=== PATIENT | female | born 1975 | race Caucasian/White ===

== ENCOUNTER 2019-07-15 18:14 | Inpatient (IN) ==
[2019-07-15] MEDS ORDERED: cefTRIAXone 2,000 MG in Water for inj. (sterile) 20 ML IVP ONE (18:24)
[2019-07-15] MEDS: 0.9 % Sodium Chloride 1,000 ML IVC SCH ×2 (18:42→23:20)
[2019-07-15] MEDS ORDERED: Ondansetron 4 MG/2 ML VIAL IVP ONE (18:45)
[2019-07-15 18:49] LABS: Basophils % 0.2 %; Eosinophils % 0.1 %; Hematocrit 42.1 % (35.3-44.9); Hemoglobin 14.3 g/dL (11.5-15.4); Immature Granulocytes % 2.2 % (0-4); Lymphocytes # 1.4 K/mcL (0.6-4.6); Lymphocytes % 7.6 %; Mean Corpuscular Hemoglobin 30.6 pg (28.0-33.3); Mean Platelet Volume 10.4 fL (9.4-12.4); Monocytes # 1.4 K/mcL (0.0-1.3); Monocytes % 7.5 %; Platelet Count 312 K/mcL (140-400); Red Blood Count 4.68 M/mcL (3.82-4.97); Red Cell Distribution Width 13.4 % (11.5-14.5); Segmented Neutrophils % 82.4 %
[2019-07-15 18:52] LABS: Neutrophils # 15.2 K/mcL (1.6-8.9); White Blood Count 18.5 K/mcL (4.3-11.1)
[2019-07-15 19:07] LABS: INR 1.4; Prothrombin Time 15.8 Seconds (9.4-12.1)
[2019-07-15 19:09] LABS: Activated Partial Thrombo Time 35.9 Seconds (26.0-36.0)
[2019-07-15 19:11] LABS: Alanine Aminotransferase 25 Units/L (7-52); Albumin 3.7 g/dL (3.5-5.7); Alkaline Phosphatase 97 Units/L (34-104); Aspartate Amino Transferase 13 Units/L (13-39); BUN/Creatinine Ratio 19 (6-26); Bilirubin,Direct 0.2 mg/dL (0.0-0.2); Bilirubin,Indirect 0.4 mg/dL (0.0-1.0); Bilirubin,Total 0.6 mg/dL (0.3-1.0); Blood Urea Nitrogen 21 mg/dL (6-20); Calcium 9.7 mg/dL (8.6-10.3); Carbon Dioxide 29 mEq/L (23-29); Chloride 96 mEq/L (98-107); Globulin 3.8 g/dL (2.4-3.5); Glucose 132 mg/dL (70-105); Magnesium 2.2 mg/dL (1.6-2.6); Osmolality,Calculated 285 (280-300); Phosphorous 1.5 mg/dL (2.7-4.5); Potassium 3.4 mEq/L (3.5-5.1); Sodium 135 mEq/L (136-145); Total Protein 7.5 g/dL (6.4-8.9); Troponin I < 0.03 ng/mL (< 0.04); eGFR For African Americans > 60 (> 60); eGFR For Non-African Americans 53 (> 60)
[2019-07-15] MEDS ORDERED: *HR* FentaNYL (PF) 100 MCG/2 ML VIAL ONE (20:11)
[2019-07-15] MEDS ORDERED: Lidocaine -MPF 2% 2 ML VIAL ONE ×2 (20:11)
[2019-07-15] MEDS ORDERED: *HR* Propofol 200 MG/20 ML VIAL IVP ONE (20:11)
[2019-07-15] MEDS ORDERED: Dexamethasone 4 MG/ML VIAL ONE (20:15)
[2019-07-15] MEDS ORDERED: Scopolamine Patch 1.5 MG PATCH.TD72 ONE (20:30)
[2019-07-15] MEDS ORDERED: *HR* Promethazine 25 MG/ML VIAL IVP PRN (20:34)
[2019-07-15] MEDS ORDERED: *HR* LORazepam 2 MG/ML VIAL IVP PRN (20:34)
[2019-07-15] MEDS ORDERED: Morphine Sulfate 2 MG/ML SYRINGE IVP PRN (20:36)
[2019-07-15] MEDS ORDERED: Albuterol 2.5 MG/3 ML NEBULIZER IH PRN (21:31)
[2019-07-15] MEDS ORDERED: Ketorolac 30 MG/ML VIAL IVP PRN (22:12)
[2019-07-15] MEDS ORDERED: Ondansetron 4 MG/2 ML VIAL IVP PRN (22:12)
[2019-07-15] MEDS ORDERED: Naloxone 0.4 MG/ML INJ IVP PRN (22:12)
[2019-07-15] MEDS ORDERED: 0.9 % Sodium Chloride 1,000 ML IVC SCH (22:15)
[2019-07-16] MEDS ORDERED: *HR* Promethazine 25 MG/ML VIAL IVP PRN (00:09)
[2019-07-16] MEDS ORDERED: Naloxone 0.4 MG/ML INJ IVP PRN (00:09)
[2019-07-16] MEDS ORDERED: Hyoscyamine SL 0.125 MG TAB.SUBL SL PRN (00:09)
[2019-07-16] MEDS: 0.9 % Sodium Chloride 1,000 ML IVC SCH ×4 (01:12→22:42)
[2019-07-16 03:41] LABS: Bilirubin,Urine Negative (Negative); Blood,Urine Large (Negative); Clarity,Urine Cloudy (Clear); Color,Urine Yellow (Yellow); Glucose,Urine (UA) Normal (Normal); Ketones,Urine 80 mg/dL (Negative); Leukocyte Esterase,Urine Moderate (Negative); Nitrite,Urine Negative (Negative); PH,Urine 6.5 pH Units (5.0-8.0); Protein,Urine 100 mg/dL (Neg-Trace); Specific Gravity,Urine 1.029 (1.010-1.025); Urobilinogen,Urine Normal (Normal)
[2019-07-16 03:43] LABS: Bacteria,Urine None Seen per hpf (None-Few); Hyaline Casts,Urine Few per lpf (None-Few); RBC,Urine TNTC per hpf (0-3); Squamous Epithelial Cell,Urine Many per lpf (None-Few); WBC,Urine 50-100 per hpf (0-3)
[2019-07-16 04:00] LABS: Granular Casts,Urine Few per lpf (None Seen)
[2019-07-16 04:01] LABS: Renal Epithelial Cells,Urine Few per hpf (None-Few)
[2019-07-16 05:26] LABS: Basophils % 0.1 %; Hematocrit 34.3 % (35.3-44.9); Immature Granulocytes % 1.9 % (0-4); Lymphocytes # 1.1 K/mcL (0.6-4.6); Lymphocytes % 7.9 %; Mean Corpuscular HGB Conc 32.9 g/dL (31.6-35.5); Mean Corpuscular Hemoglobin 30.7 pg (28.0-33.3); Mean Corpuscular Volume 93.2 fL (83.0-100.0); Mean Platelet Volume 10.8 fL (9.4-12.4); Monocytes % 6.8 %; Platelet Count 264 K/mcL (140-400); Red Blood Count 3.68 M/mcL (3.82-4.97); Red Cell Distribution Width 13.5 % (11.5-14.5); Segmented Neutrophils % 83.3 %; White Blood Count 14.4 K/mcL (4.3-11.1)
[2019-07-16] MEDS: Cefepime HCl 1,000 MG in Water for inj. (sterile) 10 ML IVP SCH ×2 (05:27→18:20)
[2019-07-16 05:29] LABS: Hemoglobin 11.3 g/dL (11.5-15.4)
[2019-07-16 05:43] LABS: BUN/Creatinine Ratio 29 (6-26); Blood Urea Nitrogen 22 mg/dL (6-20); Calcium 8.2 mg/dL (8.6-10.3); Carbon Dioxide 21 mEq/L (23-29); Chloride 106 mEq/L (98-107); Glucose 152 mg/dL (70-105); Osmolality,Calculated 286 (280-300); Potassium 3.4 mEq/L (3.5-5.1); Sodium 135 mEq/L (136-145); eGFR For African Americans > 60 (> 60); eGFR For Non-African Americans > 60 (> 60)
[2019-07-16] MEDS ORDERED: GuaiFENesin Liq 200 MG/10 ML UDC PO PRN (09:51)
[2019-07-17] MEDS: 0.9 % Sodium Chloride 1,000 ML IVC SCH ×2 (05:57→08:45)
[2019-07-17] MEDS: Cefepime HCl 1,000 MG in Water for inj. (sterile) 10 ML IVP SCH (06:01)
[2019-07-17 07:29] VITALS: BP 103/68
== END 2019-07-17 11:20 | disposition home or self-care (01) | DRG 854 ==
LOC: EMEROOARM 18:14 → 2NNU 19:48 → SUATTDRO 19:48 → 2NNU 20:06 → 2ANU 07-16 18:05
PROVIDERS: ADMIT Student in an Organized Health Care Education/Training Program; ATTEND Family Medicine